=== PATIENT | female | born 1985 | race Caucasian/White ===

== ENCOUNTER 2024-06-01 09:00 | Emergency (ER) | payer OTHER, SELFPAY ==
[2024-06-01 09:07] VITALS: BP 129/76; PULSE 78; RESP 18; TEMP 36.1; O2SAT 100; BMI 40.3
--- NOTE | 2024-06-01 10:00 | ED_ITS ---
HPI - Wound/Laceration General Chief Complaint: Laceration/Wound Stated Complaint: laceration left thumb Time Seen by Provider: 06/01/24 09:24 History of Present Illness HPI narrative: This 39-year-old female comes in with a laceration to her left thumb. She was cutting some bread this morning in the knife cut into the dorsal aspect of her left thumb causing a flap-type injury. She states that her tetanus status is up-to-date. She does not have any sensory or motor dysfunction related to this injury. Related Data Home Medications ?Medication ?Instructions ?Recorded ?Confirmed No Known Home Medications 06/01/24 06/01/24 Allergies Allergy/AdvReac Type Severity Reaction Status Date / Time No Known Drug Allergies Allergy Verified 06/01/24 09:06 Review of Systems Status of ROS: Reports: 10 or more systems reviewed and unremarkable except as noted in History and below Narrative: Constitutional: No fevers, no weight gain or loss. Eyes: No discharge. No vision changes. HENT: No congestion, no sore throat, no ear pain. Cardiovascular: No chest pain, no palpitations. Respiratory: No shortness of breath, no wheezes, no cough. Gastrointestinal: No abdominal pain, no vomiting, no diarrhea. Genitourinary: No dysuria, no hematuria. Musculoskeletal: Normal range of motion. Skin: No rashes, no pruritis. Neurological: No dizziness, weakness, sensory change, speech change. Endo/Heme/Allergies: No bruising or bleeding. No polydipsia. Pysch: no suicidality, no anxiety, no insomnia. All other systems reviewed and are negative. [facility] Social History Smoking Status: Former smoker How often do you have a drink containing alcohol: monthly or less AUDIT-C Alcohol total score: 1 Non-prescribed substance use: denies use Exam Narrative: Exam Narrative: Constitutional: Well-developed, well-nourished, no acute distress. HEENT: Normocephalic, atraumatic. Neck: Normal range of motion. Nontender. Supple. Heart: Regular. No murmurs. Normal rate. Intact distal pulses. Lungs: Clear to auscultation. No chest discomfort. No wheezes, rhonchi, or rales. Abdomen: Normal bowel sounds. Nontender. No rebound tenderness. Genitalia: Deferred. Back: No midline tenderness. Normal range of motion. Extremities: Normal range of motion. 2.5 cm flap-type wound on the dorsal aspect of the left thumb. No tendon or nerve dysfunction. Skin: Intact. No rash. Warm. No erythema or pallor. Neurologic: No altered sensation. No weakness. Alert and oriented. Psychiatric: No suicidality. No anxiety or depression. No insomnia. Nursing notes and vitals signs are reviewed. Const: Vital Signs, click to edit/add: Vital Signs - 24 hr 06/01/24 09:07 Temperature 97.0 F L Pulse Rate [Pulse Oximeter] 78 Respiratory Rate 18 [facility] 129/76 Pulse Oximetry 100 Oxygen Delivery Me thod Room Air Course Vital Signs Vital signs: Initial Vital Signs Temperature 97.0 F L 06/01/24 09:07 Temperature Source Temporal Artery Scan 06/01/24 09:07 Pulse Rate 78 06/01/24 09:07 Pulse Rhythm Regular 06/01/24 09:07 Respiratory Rate 18 06/01/24 09:07 Blood Pressure 129/76 06/01/24 09:07 Blood Pressure Mean 93 06/01/24 09:07 Blood Pressure Position Sitting 06/01/24 09:07 Pulse Oximetry 100 06/01/24 09:07 Oxygen Delivery Method Room Air 06/01/24 09:07 Vital Signs Temperature 97.0 F L 06/01/24 09:07 Pulse Rate 78 06/01/24 09:07 Respiratory Rate 18 06/01/24 09:07 Blood Pressure 129/76 06/01/24 09:07 Pulse Oximetry 100 06/01/24 09:07 Oxygen Delivery Method Room Air 06/01/24 09:07 Temperature 97.0 F L 06/01/24 09:07 Pulse Rate 78 06/01/24 09:07 Respiratory Rate 18 06/01/24 09:07 Blood Pressure 129/76 06/01/24 09:07 Pulse Oximetry 100 06/01/24 09:07 Oxygen Delivery Method Room Air 06/01/24 09:07 MDM - Wound/Laceration MDM Narrative Medical decision making narrative: This patient has a laceration on her left thumb that would benefit from repair. I did discuss options including Dermabond and suture repair. The patient elected to have Dermabond applied. I did use a ring exsanguinater and then cleanse the wound before applying Dermabond. The wound edges are nicely approximated. Two Band-Aids were applied for protection of the wound and some splinting of her distal left thumb joint. Instructions regarding wound care were given. Discharge Plan Discharge Clinical Impression: Laceration Additional Instructions: Keep wound clean and dry. Increase activity as tolerated. Follow up with MD return if worsening. Prescriptions: No Action No Known Home Medications Follow Up/Referrals: Provider,Not a Local [Primary Care Provider] -
[2024-06-01] MEDS: ACETAMINOPHEN 500 MG TABLET 1000 MG PO (10:05)
[2024-06-01 11:15] VITALS: BP 129/76; PULSE 78; RESP 18; TEMP 36.1
== END 2024-06-01 11:15 | disposition home or self-care (01) ==
PROVIDERS: Emergency Provider Emergency Medicine Emergency Medical Services
DX: S61.012A Laceration without foreign body of left thumb without damage to nail, initial encounter (principal); W26.0XXA Contact with knife, initial encounter
CPT/HCPCS: 12001; 99283; 99284; A9270